=== PATIENT | female | born 1995 | race Two or more races ===

== ENCOUNTER 2016-07-24 22:16 | Emergency (ER) | payer BC, MEDICAID ==
[~2016-07-24] VITALS: Ht 160 cm; Wt 66.0 kg
[2016-07-25 02:53] VITALS: BP 125/69
== END 2016-07-25 05:00 | disposition home or self-care (01) ==
LOC: ER 22:17
DX: M54.9 Dorsalgia, unspecified (principal); M54.2 Cervicalgia; V43.52XA Car driver injured in collision with other type car in traffic accident, initial encounter; J32.2 Chronic ethmoidal sinusitis; Y93.89 Activity, other specified; Y92.89 Other specified places as the place of occurrence of the external cause; F41.9 Anxiety disorder, unspecified; F31.9 Bipolar disorder, unspecified; F17.210 Nicotine dependence, cigarettes, uncomplicated; F12.10 Cannabis abuse, uncomplicated
CPT/HCPCS: 70450; 72125; 72128; 73030; 73552; 99284